=== PATIENT | male | born 1965 | race Caucasian/White ===

== ENCOUNTER 2017-04-30 22:34 | Inpatient (IN) | payer OTHER ==
[~2017-04-30] VITALS: Ht 172.7 cm; Wt 88.6 kg
[~2017-04-30 22:34] MED LIST: temazepam 15mg capsule PO PRN
[2017-04-30] MEDS ORDERED: NO HOME MEDS (23:07)
[2017-04-30] MEDS ORDERED: HYDROmorphone 1 mg/ml syringe IV PRN ×2 (23:55)
[2017-04-30] MEDS ORDERED: diphenhydrAMINE 25mg capsule PO PRN (23:55)
[2017-04-30] MEDS ORDERED: diphenhydrAMINE 50 mg/ml inj IV PRN (23:55)
[2017-04-30] MEDS ORDERED: acetaminophen 325mg tablet PO PRN ×2 (23:55)
[2017-04-30] MEDS ORDERED: ondansetron/PF 4mg/2ml inj IV PRN (23:55)
[2017-04-30] MEDS ORDERED: regadenoson 0.4mg/5ml syringe IV ONE (23:55)
[2017-04-30] MEDS ORDERED: metoclopramide 5 mg/ml inj IV PRN (23:55)
[2017-04-30] MEDS ORDERED: aminophylline 250mg/10ml inj. IV PRN (23:55)
[2017-04-30] MEDS ORDERED: bisacodyl 10mg suppository rectal RC PRN (23:55)
[2017-04-30] MEDS ORDERED: magnesium hydroxide 30ml (MOM) UD suspension PO PRN (23:55)
[2017-04-30] MEDS ORDERED: HYDROcodone/acetaminophen 5mg/325mg tablet PO PRN (23:55)
[2017-04-30] MEDS ORDERED: mag hydrox/Alum hydrox/simeth 30ml oral suspension PO PRN (23:55)
[2017-04-30] MEDS ORDERED: HYDROcodone/acetaminophen 10/325mg tab PO PRN (23:55)
[2017-04-30] MEDS ORDERED: nitroGLYCERIN 0.4mg SUBLingual tab SL PRN (23:55)
[2017-04-30] MEDS ORDERED: metoprolol tartrate 1mg/ml inj IV PRN (23:55)
[2017-04-30] MEDS ORDERED: acetaminophen 650mg rectal suppository RC PRN (23:55)
[2017-05-01] VITALS (12 sets, daily range): BP systolic 125–185; BP diastolic 71–101
[2017-05-01] MEDS ORDERED: metoprolol tartrate 1mg/ml inj IV PRN (00:05)
[2017-05-01] MEDS: atorvastatin 10mg tablet PO SCH ×2 (00:22→11:22)
[2017-05-01] MEDS: heparin, porcine 5000 units/ml vial SQ SCH ×3 (00:25→16:00)
[2017-05-01] MEDS: normal saline 1000ml 1,000 ML IV SCH ×2 (00:25→01:20)
[2017-05-01 01:00] LABS: HEMOGLOBIN A1C 5.4 % (4.5-6.2)
[2017-05-01 01:12] LABS: D-DIMER 0.65 MG/L FEU (0-0.50)
[2017-05-01 01:20] LABS: MAGNESIUM 1.9 MG/DL (1.5-2.4)
[2017-05-01 01:39] LABS: CLARITY,URINE Clear (Clear); COLOR,URINE Yellow (Yellow); GLUCOSE, URINE Negative (Neg); KETONES,URINE Negative (Neg); LEUKOCYTE ESTERASE ,URINE Trace (Neg); NITRITES, URINE Negative (Neg); OCCULT BLOOD,URINE Negative (Neg); PH,URINE 5.5 (4.8-8.0); PROTEIN,URINE Negative (Neg); UROBILINOGEN,URINE 0.2 E.U/dL (0.2-1.0)
[2017-05-01 01:50] LABS: UA COLLECTION TYPE CLN CATCH MIDSTREAM
[2017-05-01 02:17] LABS: BACTERIA,URINE NONE SEEN /HPF (Neg); MUCUS STRANDS NONE SEEN /LPF (Neg); RBC,URINE NONE SEEN /HPF (0-2); SQUAMOUS EPITHELIAL CELL,UR NONE SEEN /LPF (FEW); WBC,URINE 0-4 /HPF (0-4)
[2017-05-01 02:57] LABS: BASOPHILS # (AUTO) 0.1 X10'3 (0-0.2); BASOPHILS % (AUTO) 0.8 % (0-1); EOSINOPHILS # (AUTO) 0.6 X10'3 (0-0.9); EOSINOPHILS % (AUTO) 5.5 % (0-6); HEMATOCRIT 42.6 % (42.0-52.0); HEMOGLOBIN 14.6 g/dl (14.0-17.9); LYMPHOCYTES # (AUTO) 4.1 X10'3 (1.1-4.8); LYMPHOCYTES % (AUTO) 34.9 % (21-51); MEAN CORPUSCULAR HEMOGLOBIN 32.7 PG (27.0-31.0); MEAN CORPUSCULAR HGB CONC 34.3 % (33.0-36.5); MEAN CORPUSCULAR VOLUME 95.5 FL (78-98); MEAN PLATELET VOLUME 8.5 FL (7.4-10.4); MONOCYTES # (AUTO) 0.7 X10'3 (0-0.9); MONOCYTES % (AUTO) 5.8 % (2-12); NEUTROPHILS # (AUTO) 6.2 X10'3 (1.8-7.7); PLATELET COUNT 193 X10'3 (140-440); RED BLOOD COUNT 4.46 X10'6 (4.70-6.10); RED CELL DISTRIBUTION WIDTH 13.4 % (11.5-14.5); WHITE BLOOD COUNT 11.7 X10'3 (4.5-11.0)
[2017-05-01] MEDS ORDERED: MONT10TA21 PO (03:06)
[2017-05-01] MEDS ORDERED: FEXO-25 PO (03:10)
[2017-05-01 03:11] LABS: ALANINE AMINOTRANSFERASE 20 U/L (12-78); ALBUMIN 3.2 G/DL (3.4-5.0); ALKALINE PHOSPHATASE 60 IU/L (46-116); ANION GAP 8 (8-16); ASPARTATE AMINO TRANSFERASE 17 U/L (10-37); BILIRUBIN,TOTAL 0.6 MG/DL (0.1-1.0); BLOOD UREA NITROGEN 11 MG/DL (7-18); BUN/CREATININE RATIO 9.6 (5.4-32.0); CALCIUM 8.7 MG/DL (8.5-10.1); CHLORIDE 106 MMOL/L (99-107); CREATININE 1.15 MG/DL (0.60-1.10); GLUCOSE 100 MG/DL (70-104); POTASSIUM 3.9 MMOL/L (3.5-5.1); SODIUM 141 MMOL/L (135-145); TOTAL CARBON DIOXIDE 27.1 MMOL/L (24-32); TOTAL PROTEIN 6.3 G/DL (6.4-8.2); eGFR 67 ML/MIN
[2017-05-01] MEDS ORDERED: OMEP20TA23 PO (03:11)
[2017-05-01 03:14] LABS: CHOLESTEROL 158 MG/DL (0-200); HDL CHOLESTEROL 52 MG/DL (35-60); LDL CHOLESTEROL 91 MG/DL (50-100); TRIGLYCERIDES 129 MG/DL (20-135)
[2017-05-01] MEDS: docusate sod 100mg capsule PO SCH ×2 (08:00→20:25)
[2017-05-01] MEDS: pantoprazole 40mg Tablet.DR PO SCH (08:27)
[2017-05-01] MEDS: clopidogrel 75mg tablet PO SCH (08:28)
[2017-05-01] MEDS ORDERED: aminophylline inj. 0 ML IV ONE (09:55)
[2017-05-01] MEDS ORDERED: regadenoson 0.4mg/5ml syringe IV ONE (09:55)
[2017-05-01] MEDS: metoprolol tartrate 25mg tablet PO SCH ×2 (11:22→20:25)
[2017-05-01] MEDS: lisinopril 10 MG tablet PO SCH (11:22)
[2017-05-02] VITALS (12 sets, daily range): BP systolic 109–154; BP diastolic 72–82
[2017-05-02 04:52] LABS: BASOPHILS # (AUTO) 0.1 X10'3 (0-0.2); BASOPHILS % (AUTO) 0.9 % (0-1); EOSINOPHILS # (AUTO) 0.7 X10'3 (0-0.9); EOSINOPHILS % (AUTO) 7.3 % (0-6); HEMATOCRIT 42.3 % (42.0-52.0); HEMOGLOBIN 14.4 g/dl (14.0-17.9); LYMPHOCYTES % (AUTO) 30.2 % (21-51); MEAN CORPUSCULAR HEMOGLOBIN 32.6 PG (27.0-31.0); MEAN CORPUSCULAR HGB CONC 34.1 % (33.0-36.5); MEAN CORPUSCULAR VOLUME 95.8 FL (78-98); MEAN PLATELET VOLUME 8.4 FL (7.4-10.4); MONOCYTES # (AUTO) 0.6 X10'3 (0-0.9); MONOCYTES % (AUTO) 5.9 % (2-12); NEUTROPHILS # (AUTO) 5.5 X10'3 (1.8-7.7); NEUTROPHILS % (AUTO) 55.7 % (42-75); PLATELET COUNT 192 X10'3 (140-440); RED BLOOD COUNT 4.41 X10'6 (4.70-6.10); RED CELL DISTRIBUTION WIDTH 13.1 % (11.5-14.5)
[2017-05-02 05:28] LABS: ALANINE AMINOTRANSFERASE 18 U/L (12-78); ALKALINE PHOSPHATASE 55 IU/L (46-116); ANION GAP 6 (8-16); ASPARTATE AMINO TRANSFERASE 13 U/L (10-37); BILIRUBIN,TOTAL 0.6 MG/DL (0.1-1.0); BLOOD UREA NITROGEN 12 MG/DL (7-18); BUN/CREATININE RATIO 9.8 (5.4-32.0); CALCIUM 8.5 MG/DL (8.5-10.1); CHLORIDE 106 MMOL/L (99-107); CREATININE 1.22 MG/DL (0.60-1.10); GLUCOSE 97 MG/DL (70-104); SODIUM 140 MMOL/L (135-145); TOTAL CARBON DIOXIDE 27.8 MMOL/L (24-32); eGFR 62 ML/MIN
[2017-05-02] MEDS: lisinopril 10 MG tablet PO SCH (08:00)
[2017-05-02] MEDS: docusate sod 100mg capsule PO SCH ×2 (08:55→20:22)
[2017-05-02] MEDS: pantoprazole 40mg Tablet.DR PO SCH (08:55)
[2017-05-02] MEDS: clopidogrel 75mg tablet PO SCH (08:56)
[2017-05-02] MEDS: metoprolol tartrate 25mg tablet PO SCH ×2 (08:56→20:22)
[2017-05-02] MEDS: atorvastatin 10mg tablet PO SCH (08:56)
[2017-05-02] MEDS ORDERED: IOHEXOL 350 MG/ML 150 ML injection IV ONE (10:44)
[2017-05-02] MEDS ORDERED: LIDOcaine 1%/PF (10mg/ml) 5ml vial ONE (10:44)
[2017-05-02] MEDS ORDERED: iohexol 350 MG/ML 50ML vial IV ONE (10:44)
[2017-05-02] MEDS ORDERED: fentaNYL/PF 50MCG/1 ML 2ML syringe ONE (11:10)
[2017-05-02] MEDS ORDERED: diphenhydrAMINE 50 mg/ml inj ONE (11:10)
[2017-05-02] MEDS ORDERED: midazolam 2 mg/2 ml injection ONE (11:10)
[2017-05-02] MEDS ORDERED: OXAZEpam 15mg capsule PO PRN (15:40)
[2017-05-02] MEDS ORDERED: nitroGLYCERIN 0.4mg SUBLingual tab SL PRN (15:40)
[2017-05-02] MEDS ORDERED: normal saline 1000ml 1,000 ML IV SCH (15:40)
[2017-05-02] MEDS ORDERED: proCHLORperazine 10 MG/2 ml inj IV PRN (15:40)
[2017-05-03] VITALS: BP 159/89
[2017-05-03] MEDS: normal saline 1000ml 1,000 ML IV SCH (00:30)
[2017-05-03 06:09] LABS: BASOPHILS % (AUTO) 0.6 % (0-1); EOSINOPHILS # (AUTO) 0.6 X10'3 (0-0.9); EOSINOPHILS % (AUTO) 6.9 % (0-6); HEMATOCRIT 40.3 % (42.0-52.0); HEMOGLOBIN 13.7 g/dl (14.0-17.9); LYMPHOCYTES # (AUTO) 2.4 X10'3 (1.1-4.8); LYMPHOCYTES % (AUTO) 27.4 % (21-51); MEAN CORPUSCULAR HEMOGLOBIN 32.6 PG (27.0-31.0); MEAN PLATELET VOLUME 8.5 FL (7.4-10.4); MONOCYTES # (AUTO) 0.6 X10'3 (0-0.9); MONOCYTES % (AUTO) 6.9 % (2-12); NEUTROPHILS % (AUTO) 58.2 % (42-75); PLATELET COUNT 177 X10'3 (140-440); RED CELL DISTRIBUTION WIDTH 13.3 % (11.5-14.5); WHITE BLOOD COUNT 8.6 X10'3 (4.5-11.0)
[2017-05-03 07:00] VITALS: BP 160/96
[2017-05-03 07:08] LABS: ALANINE AMINOTRANSFERASE 19 U/L (12-78); ALBUMIN 2.9 G/DL (3.4-5.0); ALKALINE PHOSPHATASE 50 IU/L (46-116); ANION GAP 5 (8-16); ASPARTATE AMINO TRANSFERASE 10 U/L (10-37); BILIRUBIN,TOTAL 0.7 MG/DL (0.1-1.0); BLOOD UREA NITROGEN 10 MG/DL (7-18); BUN/CREATININE RATIO 8.1 (5.4-32.0); CALCIUM 8.5 MG/DL (8.5-10.1); CHLORIDE 109 MMOL/L (99-107); CREATININE 1.23 MG/DL (0.60-1.10); GLUCOSE 96 MG/DL (70-104); POTASSIUM 4.7 MMOL/L (3.5-5.1); SODIUM 142 MMOL/L (135-145); TOTAL CARBON DIOXIDE 27.8 MMOL/L (24-32); TOTAL PROTEIN 5.9 G/DL (6.4-8.2); eGFR 62 ML/MIN
[2017-05-03] MEDS: atorvastatin 10mg tablet PO SCH (08:45)
[2017-05-03] MEDS: lisinopril 10 MG tablet PO SCH (08:45)
[2017-05-03] MEDS: docusate sod 100mg capsule PO SCH (08:45)
[2017-05-03] MEDS: clopidogrel 75mg tablet PO SCH (08:45)
[2017-05-03] MEDS: pantoprazole 40mg Tablet.DR PO SCH (08:45)
[2017-05-03] MEDS: metoprolol tartrate 25mg tablet PO SCH (08:45)
[2017-05-03] MEDS ORDERED: NITR0.4T51 SL (17:09)
[2017-05-03] MEDS ORDERED: NICO-687 TOP (17:09)
[2017-05-03] MEDS ORDERED: NICO-630 TD (17:09)
[2017-05-03] MEDS ORDERED: LISI10TA4 PO (17:09)
[2017-05-03] MEDS ORDERED: NICO-731 TOP (17:09)
[2017-05-03] MEDS ORDERED: ATOR10TA PO (17:09)
[2017-05-03] MEDS ORDERED: ISOS30TA6 PO (17:09)
[2017-05-03] MEDS ORDERED: METO25TA6 PO (17:09)
[2017-05-03] MEDS ORDERED: CLOP75TA35 PO (17:09)
== END 2017-05-03 18:33 | disposition home or self-care (01) | DRG 280 ==
LOC: ER 22:34 → ED HOLD 23:54 → EDBEDREQ 05-01 00:28 → MED 3N 05-01 01:08
PROVIDERS: ADMIT Family Medicine; ATTEND Family Medicine
PROC: 4A02XM4 Measurement of Cardiac Total Activity, External Approach (ICD-10-PCS; principal; 2017-05-01)
PROC: 3E033HZ Introduction of Radioactive Substance into Peripheral Vein, Percutaneous Approach (ICD-10-PCS; 2017-05-01)
PROC: 4A023N7 Measurement of Cardiac Sampling and Pressure, Left Heart, Percutaneous Approach (ICD-10-PCS; 2017-05-02)
PROC: B2111ZZ Fluoroscopy of Multiple Coronary Arteries using Low Osmolar Contrast (ICD-10-PCS; 2017-05-02)
PROC: B2151ZZ Fluoroscopy of Left Heart using Low Osmolar Contrast (ICD-10-PCS; 2017-05-02)
PROC: B41J1ZZ Fluoroscopy of Other Lower Arteries using Low Osmolar Contrast (ICD-10-PCS; 2017-05-02)
PROC: B31N1ZZ Fluoroscopy of Other Upper Arteries using Low Osmolar Contrast (ICD-10-PCS; 2017-05-02)
DX: I21.4 Non-ST elevation (NSTEMI) myocardial infarction (principal); I50.21 Acute systolic (congestive) heart failure; I16.1 Hypertensive emergency; I42.9 Cardiomyopathy, unspecified; I11.0 Hypertensive heart disease with heart failure; I25.10 Atherosclerotic heart disease of native coronary artery without angina pectoris; J32.9 Chronic sinusitis, unspecified; K21.9 Gastro-esophageal reflux disease without esophagitis; M51.36 Other intervertebral disc degeneration, lumbar region; M51.34 Other intervertebral disc degeneration, thoracic region; M50.30 Other cervical disc degeneration, unspecified cervical region; F17.210 Nicotine dependence, cigarettes, uncomplicated; Z79.899 Other long term (current) drug therapy; Z88.6 Allergy status to analgesic agent; Z88.8 Allergy status to other drugs, medicaments and biological substances; Z71.6 Tobacco abuse counseling
CPT/HCPCS: 36415; 72141; 72146; 72148; 78452; 80053; 80061; 81001; 83036; 83690; 83735; 83880; 84443; 84484; 85025; 85379; 87070; 87088; 93005; 93017; 93458; 99152; 99153; 99285; A4620; A6257; A9500; C1769; J0280; J1200; J1644; J2001; J2250; J2785; J3010; J7030; Q9967